=== PATIENT | female | born 1965 | race Caucasian/White ===

== ENCOUNTER 2017-10-01 20:13 | Emergency (ER) | payer OTHER ==
[~2017-10-01] VITALS: Ht 165.1 cm; Wt 88.8 kg
[~2017-10-01 20:13] MED LIST: DIOVAN160 MG PO; Ecotrin PO; GLUCOPHAGE500 MG PO; PANTOPRAZOLE SO40 MG PO; PRAVACHOL20 MG PO
[2017-10-01 20:39] LABS: HEMATOCRIT 43.8 % (36.0-46.0); HEMOGLOBIN 13.9 G/DL (11.9-15.5); MCH 25.9 PG (29.0-34.0); MCHC 31.7 G/DL (30.0-36.0); MCV 81.7 FL (83-99); PLATELET COUNT 161 K/uL (156-360); RBC DIS.WIDTH-CV 15.9 % (11.8-14.6); RED BLOOD COUNT 5.36 M/uL (3.80-5.20); WHITE BLOOD COUNT 12.3 K/uL (4.1-10.2)
[2017-10-01 20:55] LABS: CHLORIDE 99 mEq/L (99-109); POTASSIUM 3.9 mEq/L (3.7-5.4); SODIUM 137 mEq/L (136-147)
[2017-10-01 20:57] LABS: GLUCOSE 124 mg/dL (70-99)
[2017-10-01 21:01] LABS: CREATININE 0.8 mg/dL (0.6-1.3); GFR ESTIMATE (CALCULATED) > 59 mL/min/
[2017-10-01 21:02] LABS: UREA NITROGEN (BUN) 14 mg/dL (9-23)
[2017-10-01] MEDS ORDERED: MOTRIN800 MG PO (22:20)
[2017-10-01] MEDS ORDERED: KEFLEX500 MG PO (22:20)
[2017-10-01 22:43] VITALS: BP 112/80
== END 2017-10-01 22:46 | disposition home or self-care (01) ==
LOC: EME 20:13
DX: N12 Tubulo-interstitial nephritis, not specified as acute or chronic (principal); K21.9 Gastro-esophageal reflux disease without esophagitis; I10 Essential (primary) hypertension; E11.9 Type 2 diabetes mellitus without complications; Z79.82 Long term (current) use of aspirin; F17.200 Nicotine dependence, unspecified, uncomplicated; Z79.84 Long term (current) use of oral hypoglycemic drugs; Z88.0 Allergy status to penicillin; Z88.5 Allergy status to narcotic agent
CPT/HCPCS: 74176; 80048; 81003; 85027; 99281; 99285